=== PATIENT | female | born 1985 | race Caucasian/White ===

== ENCOUNTER 2018-01-19 21:39 | Emergency (ER) | payer MEDICAID ==
[2018-01-19] MEDS ORDERED: Meperidine 25 mg/mL 1mL Syr IM STA (22:26)
--- NOTE | 2018-01-19 22:33 | ED Physician Chart ---
ED Chief Complaint/HPI - Patient Information Date Seen:: 01/19/18 Time Seen:: 21:46 Chief Complaint:: L ear pain History of Present Illness:: 32 Y/O FEMAL WALKED IN ACCOMPANIED BY HER SPOUSE WITH C/O LEFT EAR PAIN X 1 DAY , WITH DIFFICULTY OF SWALLOWING, TOOK TOTAL OF 3200MG OF IBUPROFEN TODAY BUT TO NO AVAIL, AAOX4, NO SOB, NOT IN DISTRESS,ERMD MADE AWARE. Allergies:: Allergies Allergy/AdvReac Type Severity Reaction Status Date / Time No Known Allergies Allergy Verified 01/19/18 21:46 Vitals:: Vital Signs - 8 hr 01/19/18 21:46 Temp 97.8 F HR 74 RR 18 BP 159/90 O2 Sat % 98 Historian:: Patient, Family Member Review:: Nurse's Note Reviewed ED Review of Systems - Review of Systems General/Constitutional: No fever, No chills, No weight loss, No weakness, No diaphoresis, No edema, No loss of appetite Skin: No skin lesions, No rash, No bruising Head: No headache, No light-headedness Eyes: No loss of vision, No pain, No diplopia ENT: Earache Neck: No neck pain, No swelling, No thyromegaly, No stiffness, No mass noted Cardio Vascular: No chest pain, No palpitations, No PND, No orthopnea, No edema Pulmonary: No SOB, No cough, No sputum, No wheezing GI: No nausea, No vomiting, No diarrhea, No pain, No melena, No hematochezia, No constipation, No hematemesis G/U: No dysuria, No frequency, No hematuria Musculoskeletal: No bone or joint pain, No back pain, No muscle pain Endocrine: No polyuria, No polydipsia Psychiatric: No prior psych history, No depression, No anxiety, No suicidal ideation Hematopoietic: No bruising, No lymphadenopathy Allergic/Immuno: No urticaria, No angioedema Neurological: No syncope, No focal symptoms, No weakness, No paresthesia, No headache, No seizure, No dizziness, No confusion, No vertigo ED Past Medical History - Past Medical History Obtainable: Yes Past Medical History: No significant medical hx, Other (gestational hypertension ) Family Medical History - Family Member Mother Hx Family Hypertension: Yes Hx Family Diabetes: Yes Hx Family Dementia: Yes ED Physical Exam - Physical Examination General/Constitutional: Awake, Well-developed, well-nourished, Alert, No distress, GCS 15, Non-toxic appearing, Ambulatory Head: Atraumatic Eyes: Lids, conjuctiva normal, PERRL, EOMI Skin: Nl inspection, No rash, No skin lesions, No ecchymosis, Well hydrated, No lymphadenopathy ENMT: External ears, nose nl, TM canals nl, Nasal exam nl, Lips, teeth, gums nl , Oropharynx nl, Tonsils nl Other ENMT comments:: pain in the TMJ areas more on the left than the right with clicking with my fingers inside of her EAC. molars are smooth from chronic grinding. patient moves her own jaw from side to side subluxing it with voliton. Neck: Nontender, Full ROM w/o pain, No nuchal rigidity, No stridor Respiratory: Nl effort/Exclusion, Clear to Auscultation, No Wheeze/Rhonchi/Rales Cardio Vascular: RRR, No murmur, gallop, rubs, NL S1 S2 Neuro/Psych: Alert/oriented, Normal sensory exam, Normal motor strength, Judgement/insight normal, Mood normal Misc: Normal back, No paraspinal tenderness ED Septic Shock - . Is Septic Shock (SBP<90, OR Lactate>4 mmol\L) present?: No - <6hrs of presentation: Vital Signs: Vital Signs - 8 hr 01/19/18 21:46 Temp 97.8 F HR 74 RR 18 BP 159/90 O2 Sat % 98 ED Reassessment (Disposition) - Reassessment Reassessment Condition:: Improved - Diagnosis Diagnosis:: Temporomandibular syndrome - Aftercare/Follow up Instructions Aftercare/Follow-Up Instructions:: Refer to Discharge Instructions Notes:: follow up with dentist Medication Prescribed:: Tylenol # 3 - Patient Disposition Discharge/Transfer:: Home Condition at Disposition:: Stable, Improved
[2018-01-19] MEDS ORDERED: Meperidine 50 mg/mL 1mL Syr ONE (22:41)
== END 2018-01-19 23:04 | disposition home or self-care (01) ==
LOC: ER 21:39
DX: M26.622 Arthralgia of left temporomandibular joint (principal); H92.02 Otalgia, left ear
CPT/HCPCS: 81025-TC; X6024; Z7502

== ENCOUNTER 2018-04-10 18:51 | Emergency (ER) | payer MEDICAID ==
--- NOTE | 2018-04-10 19:43 | ED Physician Chart ---
ED Chief Complaint/HPI - Patient Information Date Seen:: 04/10/18 Time Seen:: 19:41 Chief Complaint:: Right foot History of Present Illness:: 33 yo female with history of intermittent right foot pain (3-4/10) for 1 month, had sudden onset of sharp right foot pain (8-9/10) when she was walking barefoot at home hearing some "crack" sound in the right foot. Patient had difficulty flexing toes. The foot pain would be worsened by put body weight on it. 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 Allergies:: Allergies Allergy/AdvReac Type Severity Reaction Status Date / Time No Known Allergies Allergy Verified 04/10/18 19:10 Vitals:: Vital Signs - 8 hr 04/10/18 18:56 Temp 97.8 F HR 87 RR 18 BP 128/64 O2 Sat % 97 ED Review of Systems - Review of Systems General/Constitutional: No fever, No chills Skin: No rash Head: No headache Eyes: No pain ENT: No nasal drainage Neck: No neck pain Cardio Vascular: No chest pain Pulmonary: No SOB GI: No nausea, No vomiting Musculoskeletal: Bone or joint pain Psychiatric: No prior psych history Neurological: Paresthesia ED Past Medical History - Past Medical History Past Medical History: Other (gestational diabetes, obesity) Social History: Non Smoker, Alcohol (occasional ), No Drug Use Surgical History: None Family Medical History - Family Member Mother History Unknown: Yes Hx Family Hypertension: Yes Hx Family Diabetes: Yes Hx Family Dementia: Yes ED Physical Exam - Physical Examination General/Constitutional: Awake, Alert Head: Atraumatic Eyes: PERRL, EOMI ENMT: Nasal exam nl Neck: No nuchal rigidity Respiratory: No Wheeze/Rhonchi/Rales Cardio Vascular: RRR, No murmur, gallop, rubs, NL S1 S2 GI: No tenderness/rebounding/guarding Other Extremities comments:: Right foot tenderness on the metatarsal 4th, 5th area. Babinski symmetric bilaterally Neuro/Psych: Alert/oriented ED Labs/Radiology/EKG Results - Radiology Results Results: Right foot X ray: no evidence of acute fracture ED Assessment - Assessment General Assessment: Right foot pain, secondary to possible soft tissue injury, possible Rod neuroma Assessment/Comments:: Right foot X ray Toradol 30mg IM ED Septic Shock - . Is Septic Shock (SBP<90, OR Lactate>4 mmol\\L) present?: No - <6hrs of presentation: Vital Signs: Vital Signs - 8 hr 04/10/18 18:56 Temp 97.8 F HR 87 RR 18 BP 128/64 O2 Sat % 97 ED Reassessment (Disposition) - Reassessment Reassessment:: Pain improved with toradol. D/c home Ibuprofen 600mg bid x 7d F/u PCP for carpet cutter referral Reassessment Condition:: Improved - Patient Disposition Discharge/Transfer:: Home
--- NOTE | 2018-04-11 10:05 | Diagnostic Imaging Report ---
Right foot 3 views Indication: pain Comparison: none Findings: There is soft tissue swelling along the dorsal forefoot. No evidence of an acute fracture or dislocation. Small distal Achilles spur is noted. Mild degenerative changes are noted. An os peroneus is noted. Impression: Soft tissue swelling along the dorsal forefoot. No evidence of an acute fracture. In the setting of trauma, if clinical symptoms persist and there is continued concern for an occult fracture, follow up exams in 5-7 days is suggested.
== END 2018-04-10 21:55 | disposition home or self-care (01) ==
LOC: ER 18:51
DX: M25.571 Pain in right ankle and joints of right foot (principal); R20.2 Paresthesia of skin
CPT/HCPCS: 99283; 96372; 73630; J1885; Z7502